=== PATIENT | male | born 1970 | race Caucasian/White ===

== ENCOUNTER → 2018-05-09 08:06 | Outpatient (CLI) | payer OTHER, SELFPAY ==
[2018-05-09 08:55] LABS: BUN Creatinine Ratio 16.7 (6-22); Blood Urea Nitrogen 15 mg/dL (9-20); Calcium 9.6 mg/dL (8.4-10.2); Carbon Dioxide 26 mmol/L (22-32); Chloride 105 mmol/L (98-107); Cholesterol 253 mg/dL (140-199); Estimated Glomerular Filt Rate > 60.0 mL/min (>60); Glucose 103 mg/dL (70-100); HDL Cholesterol 53 mg/dL (40-60); HEMOLYSIS < 15 (0-50); LDL Cholesterol Calculated 175 mg/dL (<100); Potassium 4.8 mmol/L (3.4-5.1); Sodium 139 mmol/L (137-145); Triglycerides 127 mg/dL (35-150)
[2018-05-09 10:25] LABS: Vitamin D 25 Hydroxy (D3) 47.1 ng/mL (30.0-100.0)
== END ==
PROVIDERS: PCP Student in an Organized Health Care Education/Training Program; Visit Provider Student in an Organized Health Care Education/Training Program
DX: M10.9 Gout, unspecified (principal); E55.9 Vitamin D deficiency, unspecified; Z13.9 Encounter for screening, unspecified; E13.9 Other specified diabetes mellitus without complications; Z79.1 Long term (current) use of non-steroidal anti-inflammatories (NSAID); Z13.220 Encounter for screening for lipoid disorders
CPT/HCPCS: 36415; 80048; 80061; 82306

== ENCOUNTER → 2019-09-17 12:09 | Outpatient (CLI) | payer OTHER, SELFPAY ==
[2019-09-19 11:36] LABS: COVID19 Sendout Not Detected (Not Detected)
== END ==
PROVIDERS: PCP Student in an Organized Health Care Education/Training Program; Visit Provider Physician Assistant
DX: Z03.818 Encounter for observation for suspected exposure to other biological agents ruled out (principal)
CPT/HCPCS: 87635

== ENCOUNTER → 2020-03-11 08:21 | Outpatient (CLI) | payer OTHER, SELFPAY ==
[2020-03-11 09:49] LABS: Cholesterol 260 mg/dL (140-199); HDL Cholesterol 54 mg/dL (40-60); LDL Cholesterol Calculated 178 mg/dL (<100); Triglycerides 139 mg/dL (35-150)
== END ==
PROVIDERS: PCP Student in an Organized Health Care Education/Training Program; Referring Provider Student in an Organized Health Care Education/Training Program; Visit Provider Student in an Organized Health Care Education/Training Program
DX: E78.2 Mixed hyperlipidemia (principal)
CPT/HCPCS: 36415; 80061

== ENCOUNTER → 2020-06-16 15:57 | Outpatient (CLI) | payer OTHER, SELFPAY ==
[2020-06-16] MEDS: COVID-19 VACC #1, MRNA(MOD) 100 MCG/0.5 ML VIAL IM (16:08)
== END ==
PROVIDERS: PCP Student in an Organized Health Care Education/Training Program; Visit Provider Internal Medicine
DX: Z23 Encounter for immunization (principal)
CPT/HCPCS: 0011A; 91301

== ENCOUNTER → 2020-07-14 15:07 | Outpatient (CLI) | payer OTHER, SELFPAY ==
[2020-07-14] MEDS: COVID-19 VACC #2, MRNA(MOD) 100 MCG/0.5 ML VIAL IM (15:18)
== END ==
PROVIDERS: PCP Student in an Organized Health Care Education/Training Program; Visit Provider Internal Medicine
DX: Z23 Encounter for immunization (principal)
CPT/HCPCS: 0012A; 91301

== ENCOUNTER → 2021-04-04 11:05 | Outpatient (CLI) | payer OTHER, SELFPAY ==
[2021-04-05 08:28] LABS: Fecal Immunochemical Test Negative (Negative)
== END ==
PROVIDERS: PCP Student in an Organized Health Care Education/Training Program; Referring Provider Student in an Organized Health Care Education/Training Program; Visit Provider Student in an Organized Health Care Education/Training Program
DX: Z12.11 Encounter for screening for malignant neoplasm of colon (principal)
CPT/HCPCS: 82274

== ENCOUNTER → 2024-05-17 15:28 | Outpatient (CLI) | payer OTHER, SELFPAY | PROVIDERS: PCP Family Medicine; Visit Provider Nurse Practitioner Family | DX: R30.0 Dysuria (principal) | CPT/HCPCS: 87086 ==

== ENCOUNTER → 2024-11-07 15:26 | Outpatient (CLI) | payer OTHER, SELFPAY ==
--- NOTE | 2024-11-07 15:27 | DI.MRI.S_ITS ---
PROCEDURE: MR ORBITS FACE NECK WO/W CON INDICATIONS: Right parotid mass TECHNIQUE: Sagittal/axial/coronal T1 spin echo and STIR. After the administration of contrast, axial/coronal/sagittal T1 fast spin echo with fat saturation through the neck. COMPARISON: None. FINDINGS: Image quality: This examination is limited by involuntary motion artifact. Lymph nodes: No enlarged nodes are seen throughout the neck. Vessels: Visualized vasculature appears normal, with normal flow voids and enhancement. Neck spaces: The oropharynx, nasopharynx and pharynx are unremarkable, without mucosal lesions seen. Vocal cords, false vocal cords, pyriform sinuses, epiglottis, vallecula, and tongue base all appear normal. Extramucosal spaces of the neck also appear unremarkable. Glands: Within the right parotid gland, there are 2 lesions seen. One is seen within the mid gland superficially, as on series 6, image 18, measuring 11 x 9 mm, with a craniocaudal extent of 11 mm. This lesion demonstrates low signal on T1 weighted imaging, with increased signal on T2 weighted imaging and a slight amount of internal enhancement. A 2nd lesion is seen posteriorly and inferiorly superficially, as on series 8, image 20, measuring 13 x 9 mm in greatest axial dimension, with a craniocaudal extent of 16 mm. This lesion demonstrates moderate internal enhancement. This lesion demonstrates increased signal on STIR imaging and decreased signal on T1 weighted imaging. Within the left parotid, no definite focal lesion can be seen. The submandibular glands appear normal. Thyroid gland demonstrates no significant abnormality. Miscellaneous: Visualized brain and orbits appear normal. Lung apices appear clear. Superficial soft tissues appear normal. Visualized sinuses and mastoids appear clear. Bones: Marrow has normal overall signal. IMPRESSION: There are 2 lesions seen within the right parotid gland. Please consider pleomorphic adenoma. Other entities are possible, including metastatic disease and (less likely) intraparotid lymph nodes). Please consider ultrasound-guided fine-needle aspiration of these lesions for further evaluation. No definitely enlarged regional lymph nodes are seen. Dictated by: Ian Jhaveri M.D. on 11/08/2024 at 13:41 Approved by: Ian Jhaveri M.D. on 11/08/2024 at 13:45
== END ==
LOC: MRI 15:26
PROVIDERS: Family Provider Family Medicine; PCP Family Medicine; Referring Provider Family Medicine; Visit Provider Family Medicine
DX: K11.8 Other diseases of salivary glands (principal)
CPT/HCPCS: 70543; A9579

== ENCOUNTER → 2024-11-15 08:24 | Outpatient (CLI) | payer OTHER, SELFPAY ==
--- NOTE | 2024-11-15 | PATH_ITS ---
[facility] Accession Number: [id number] No. of containers..01 Tissue . 01 Material submitted: . parotid gland - RIGHT PAROTID MASS . 01 Diagnosis: RIGHT PAROTID MASS, BIOPSY: Benign Warthin tumor. No evidence of malignancy. MRV 11/19/2024 1402 Local . 01 Comment: The findings in this case were reported to Dr. Mcclelland via medical specialist Jaimie by Dr. Drew on 11/19/2024 at 11:15 a.m. . 01 Electronically signed: . Scot Holm MD, PhD, Pathologist NPI- [id number] . 01 Gross description: . Received is one formalin-filled container labeled with the patient's name and labeled Rt. sub M mass, are multiple fragments of gonzalez-cornelius, cylindrical shaped tissue which range in size from 0.1 x 0.1 x 0.1 cm to 0.6 x 0.1 x 0.1 cm. All fragments are totally submitted in cassette A1. ([id number]) /SIVAN 11/18/2024224 Local . 01 Pathologist provided ICD-10: D11.0 . 01 CPT . 017068 Specimen Comment: A courtesy copy of this report has been sent to [facility] Pathology Performed at: [address] [address], [place], [place] [id number] MD Cheko Mcmullen MD Phone: [phone]
--- NOTE | 2024-11-15 08:25 | DI.US.S_ITS ---
PROCEDURE: US BIOPSY GLAND Ultrasound-guided right parotid mass biopsy. INDICATIONS: Right Parotid Mass TECHNIQUE: The indications, alternatives, benefits, risks, and complications of the procedure were explained to the patient. Written informed consent was obtained and placed in the chart. Real-time sonography was utilized to choose the site for percutaneous right parotid biopsy. The skin was prepped and draped in the usual sterile fashion. 1% lidocaine was infiltrated down to the site of interest. A coaxial needle was then advanced into the site of interest under direct sonographic visualization. A biopsy apparatus was then utilized, and core biopsies were obtained. The needle was then withdrawn; a bandage was applied to the biopsy site. COMPARISON: [facility], MR, MR ORBITS FACE NECK WO/W CON, 11/07/2024, 16:09. [facility], US, US SOFT TISSUE HEAD AND NECK, 10/22/2024, 16:05. FINDINGS: Prior imaging was reviewed of the right parotid gland. -Palpable abnormality corresponds to the solid mass measuring 1.9 cm. Target for this biopsy. -Prior ultrasound and MRI also demonstrated a cyst with a thin septation. Discussed this finding with the patient. Biopsy is not felt to be warranted at this time due to its cystic nature. -Prior ultrasound also demonstrated an intraparotid lymph node which is not enlarged and felt to be benign. Biopsy site(s): Right posterior parotid gland solid hypoechoic oval mass measuring 1.9 cm. Needle: [employer] biopsy needle set. 18 gauge. Number of passes: 5 cores biopsies performed. Samples placed on Telfa pad and into formalin. Medications: 1% lidocaine for local anaesthesia. Complications: Minimal bleeding. IMPRESSION: Successful ultrasound-guided right posterior parotid mass biopsy, with pathology results pending. Follow-up ultrasound or MRI imaging for the cystic lesion in the right parotid gland should be considered. Dictated by: Matt Vallejo M.D. on 11/15/2024 at 10:22 Approved by: Matt Vallejo M.D. on 11/15/2024 at 10:41
== END ==
LOC: US 08:25
PROVIDERS: Family Provider Family Medicine; PCP Family Medicine; Referring Provider Family Medicine; Visit Provider Family Medicine
DX: D11.0 Benign neoplasm of parotid gland (principal); K11.8 Other diseases of salivary glands
CPT/HCPCS: 42400; 76942

== ENCOUNTER → 2024-12-11 08:12 | Outpatient (CLI) | payer OTHER, SELFPAY ==
[2024-12-11 09:32] LABS: Hematocrit 42.7 % (41-53); Hemoglobin 14.7 g/dL (13.5-17.5); Mean Corpuscular HGB Conc 34.5 % (30-36); Mean Corpuscular Hemoglobin 30.8 PG (26-34); Mean Corpuscular Volume 89.2 fL (80-100); Platelet Count 200 X10^3/uL (150-400)
[2024-12-11 09:45] LABS: Hemoglobin A1C% w Est Avg Glu 5.8 % (4.0-6.0)
[2024-12-11 09:55] LABS: Alanine Aminotransferase 34 IU/L (<50); Albumin 4.5 g/dL (3.5-5.0); Albumin Globulin Ratio 1.7 (1.0-2.8); Alkaline Phosphatase 67 U/L (38-126); Blood Urea Nitrogen 14 mg/dL (9-20); Calcium 9.3 mg/dL (8.4-10.2); Carbon Dioxide 23 mmol/L (22-32); Chloride 106 mmol/L (98-107); Cholesterol 234 mg/dL (140-199); Estimated Glomerular Filt Rate > 60 mL/min (>60); Globulin 2.7 g/dL (1.7-4.1); Glucose 108 mg/dL (70-99); HDL Cholesterol 44 mg/dL (40-60); HEMOLYSIS < 15 (0-50); Potassium 4.7 mmol/L (3.4-5.1); Sodium 136 mmol/L (137-145); Total Protein 7.2 g/dL (6.3-8.2); Triglycerides 128 mg/dL (35-150); Uric Acid 8.0 mg/dL (3.5-8.5)
[2024-12-11 17:45] LABS: HIV 1 & 2 Ab/Ag 4th Gen Combo NEGATIVE (NEGATIVE); Hep C Virus Ab w/Reflex Quant NEGATIVE s/c (NEGATIVE)
== END ==
PROVIDERS: Family Provider Family Medicine; PCP Family Medicine; Referring Provider Family Medicine; Visit Provider Family Medicine
DX: Z12.5 Encounter for screening for malignant neoplasm of prostate (principal); Z11.59 Encounter for screening for other viral diseases; Z13.9 Encounter for screening, unspecified; E66.811 Obesity, class 1; E78.2 Mixed hyperlipidemia; M10.9 Gout, unspecified; Z13.1 Encounter for screening for diabetes mellitus
CPT/HCPCS: 36415; 80053; 80061; 83036; 84550; 85027; 86803; 87389; G0103

== ENCOUNTER → 2024-12-13 14:46 | Outpatient (CLI) | payer OTHER, SELFPAY | LOC: PHYS 14:47 | PROVIDERS: Family Provider Family Medicine; PCP Family Medicine; Referring Provider Family Medicine; Visit Provider Family Medicine | DX: R20.0 Anesthesia of skin (principal) | CPT/HCPCS: 95886; 95911 ==